=== PATIENT | female | born 1940 | race Caucasian/White ===

== ENCOUNTER 2018-06-01 14:38 | Outpatient (CLI) | payer MEDICARE, OTHER ==
--- NOTE | 2018-06-01 17:32 | MRI ---
MRI LUMBAR SPINE NONCONTRAST: 06/01/18 HISTORY: Low back pain with left leg radiculopathy. FINDINGS: Conus medullaris has a normal appearance. There is desiccation of all the intervertebral discs and pr ominent discogenic end plate changes within the bone marrow. S-shaped rotatory scoliotic curvature. T12-L1: Osteophytosis. Central canal and neural foramina are patent. L1-2: Disc space narrowing with minimal degenerative retrolisthesis. Posterior disc bulge. Circumfere ntial degenerative changes with mild stenosis of the central canal. There is moderate to severe bilat eral foraminal stenoses. L2-3: Disc space narrowing with minimal degenerative retrolisthesis. Posterior disc bulge and circumf erential degenerative changes. Mild to moderate stenosis of the central canal. Moderate stenosis of e ach neural foramen. L3-4: Minimal disc bulge. Degenerative changes of the facets. The thecal sac is patent. Moderate bila teral foraminal stenosis. L4-5: Grade II spondylolisthesis at this level. Near complete loss of disc space height. Posterior di sc bulge. Prominent hypertrophy of the facets and posterior ligaments. These findings result in very severe stenosis of the central canal and left neural foramen and moderate to severe stenosis of the r ight neural foramen. L5-S1: Mild osteophytosis. The central canal and neural foramina are patent. IMPRESSION: Prominent multilevel degenerative changes throughout the lumbar spine as detailed above. Disease is m ost severe at the L4-5 level where there is grade II spondylolisthesis and very severe stenosis of th e central canal and left neural foramen. Please consider surgical evaluation. POS: [facility]
== END 2018-06-01 14:39 | disposition home or self-care (01) ==
LOC: BICMRI 14:38
PROVIDERS: ATTEND Family Medicine
DX: M47.26 Other spondylosis with radiculopathy, lumbar region (principal); M43.16 Spondylolisthesis, lumbar region; M48.061 Spinal stenosis, lumbar region without neurogenic claudication
CPT/HCPCS: 72148

== ENCOUNTER 2018-08-15 15:09 | Outpatient (CLI) | payer MEDICARE, OTHER ==
--- NOTE | 2018-08-15 15:58 | RAD ---
LEFT ANKLE THREE VIEWS: 08/15/18 HISTORY: Ankle pain and edema. No known injury. There is soft tissue swelling mainly around the medial malleolus. There is no signs of any fracture. No evidence of ankle joint effusion. There is a prominent plantar fascia spur and some ossification d eveloping along the plantar fascia. Incidental note is made of some subtle lucency along the medial side of the talar dome compatible wit h a small osteochondral lesion. IMPRESSION: Approximately 5 to 6 mm osteochondral lesion in the medial side of the talar dome. This could be the underlying etiology for patient's pain. POS: [facility]
== END 2018-08-15 15:10 | disposition home or self-care (01) ==
LOC: BICRAD 15:09
PROVIDERS: ATTEND Family Medicine
DX: R60.9 Edema, unspecified (principal); M92.62 Juvenile osteochondrosis of tarsus, left ankle

== ENCOUNTER 2019-02-13 09:47 | Outpatient (CLI) | payer MEDICARE, OTHER ==
[2019-02-13 12:58] LABS: Hemoglobin 14.4 g/dL (12.0-16.0); Mean Corpuscular HGB CONC 32.9 g/dL (32.0-36.0); Mean Corpuscular Hemoglobin 33.4 pg (27.0-31.0); Platelet Count 286 thou/uL (130-400); Red Blood Cell (RBC) Count 4.31 mill/uL (4.20-5.40)
[2019-02-13 13:21] LABS: Anion Gap 14 mmol/L (10-20); BUN (Urea Nitrogen) 14 mg/dL (9.8-20.1); Calc. Creatinine Clearance 0 mL/min (70-130); Calcium 10.3 mg/dL (7.8-10.44); Carbon Dioxide 27 mmol/L (23-31); Chloride 100 mmol/L (98-107); Estimated GFR-MDRD 78; Glucose 103 mg/dL (83-110); Potassium 3.9 mmol/L (3.5-5.1); Sodium 137 mmol/L (136-145)
== END 2019-02-13 09:48 | disposition home or self-care (01) ==
LOC: LABBT 09:47
PROVIDERS: ATTEND Neurological Surgery
DX: Z01.818 Encounter for other preprocedural examination (principal); M43.16 Spondylolisthesis, lumbar region
CPT/HCPCS: 80048; 85027; 87081; 93005; 93010

== ENCOUNTER 2019-02-13 10:00 | Inpatient (IN) | payer MEDICARE, OTHER ==
[2019-02-13 10:19] VITALS: BMI 31.6
[2019-02-19] MEDS ORDERED: Sodium Chloride 0.9% 10 ML ONE (07:14)
[2019-02-19] MEDS ORDERED: Lidocaine 2% Jelly 5 ML TUBE ONE (07:41)
[2019-02-19] MEDS ORDERED: Fentanyl 100 MCG/2 ML VIAL ONE ×3 (07:41→10:35)
[2019-02-19] MEDS ORDERED: Ondansetron HCl/PF 4 MG/2 ML Vial IVP PRN (09:50)
[2019-02-19] MEDS ORDERED: Promethazine HCl 25 MG/ML VIAL SLOW IVP PRN (09:50)
[2019-02-19] MEDS ORDERED: Promethazine HCl 25 MG/ML VIAL IM PRN ×2 (09:50→10:10)
[2019-02-19] MEDS ORDERED: diphenhydrAMINE 50 MG/ML VIAL IVP PRN (10:10)
[2019-02-19] MEDS ORDERED: Milk Of Magnesia 30 ML UDCUP PO PRN (10:10)
[2019-02-19] MEDS ORDERED: Promethazine 25 MG TAB PO PRN (10:10)
[2019-02-19] MEDS ORDERED: HYDROcodone/Acetaminophen 10/325 mg Tablet PO PRN ×2 (10:10)
[2019-02-19] MEDS ORDERED: Promethazine HCl 12.5 MG SUPP PR PRN (10:10)
[2019-02-19] MEDS ORDERED: Mag-Al 1200 mg/1200 mg/30 ML UDCUP PO PRN (10:10)
[2019-02-19] MEDS ORDERED: traMADol HCl 50 MG TAB PO PRN ×2 (10:10)
[2019-02-19] MEDS ORDERED: diphenhydrAMINE 25 MG CAP PO PRN (10:10)
[2019-02-19] MEDS: Sodium Chloride 0.9% 1,000 ML IV SCH (12:00)
--- NOTE | 2019-02-19 12:52 | OP ---
DATE OF PROCEDURE: 02/19/2019 CUSTOMER EXPERIENCE SPECIALIST: David Chua PA-C PROCEDURES PERFORMED: Posterior lumbar laminectomy L4-L5, left L4-L5 facetectomy and foraminotomy. Interbody arthrodesis, posterolateral arthrodesis, pedicle screw instrumentation L4-L5, demineralized bone matrix, and local morselized autograft. DESCRIPTION OF PROCEDURE: The patient was brought to the operating room and intubated. She was rolled in a prone position on gel-filled chest rolls. An incision was made exposing L4 and L5 bilaterally and the level was confirmed by x-ray. We performed complete L5 and complete L4 laminectomies, completing decompressing L4-L5. We next turned our attention to the left L4-L5 region. We performed complete facetectomy and completely decompressed the left L4 nerve root. Beneath this was a bulging disk herniation, which was incised and debrided and the disk space was completely debrided disk material for the purpose of arthrodesis. However, the disk space was too collapsed for placement of interbody device. We next placed pedicle screws at L4 and L5 bilaterally using lateral fluoroscopic guidance. Distraction was placed across left L4-L5 neuroforamen. The nuts were all final tightened. The wound was then extensively irrigated. MAC hemostasis was secured. A combination of demineralized bone matrix and local morselized autograft was laid over the lamina and posterolateral surfaces for the purpose of arthrodesis. Vancomycin powder was applied and the wound was then closed in anatomic layers. Job ID: [id number]
[2019-02-19] MEDS ORDERED: CEFAZOLIN 2 GM in Premix Bag 1 BAG IVPB SCH (14:00)
[2019-02-19] MEDS ORDERED: PROPOFOL 200 MG/20 ML VIAL ONE (14:36)
[2019-02-19] MEDS ORDERED: Rocuronium Bromide 10 MG/ML (10ML VIAL) ONE (14:36)
[2019-02-19] MEDS ORDERED: Lidocaine 1% PF 5 ML VIAL ONE (14:36)
[2019-02-19] MEDS ORDERED: Ketorolac Tromethamine 30 MG/ML VIAL ONE (14:36)
[2019-02-19] MEDS ORDERED: Ondansetron PF 4 MG/2 ML Vial ONE (14:36)
[2019-02-19] MEDS ORDERED: ePHEDrine 50 MG/ML VIAL ONE (14:36)
[2019-02-19] MEDS ORDERED: Glycopyrrolate 0.2 MG/ML 5 ML SYRINGE ONE (14:36)
[2019-02-19] MEDS ORDERED: Dexamethasone 20 MG/5 ML VIAL ONE (14:36)
[2019-02-19] MEDS: CEFAZOLIN 2 GM in Premix Bag 1 BAG IVPB SCH (18:14)
[2019-02-19] MEDS: tiZANidine HCl 4 MG TAB PO PRN (20:55)
[2019-02-19] MEDS ORDERED: Ezetimibe 10 MG TAB PO SCH (21:00)
[2019-02-19] MEDS ORDERED: Latanoprost 0.005% Ophth Soln 2.5 ml Bottle EA EYE SCH (21:00)
[2019-02-19] MEDS ORDERED: Rosuvastatin 20 MG TAB PO SCH (21:00)
--- NOTE | 2019-02-19 21:29 | CON ---
DATE OF CONSULTATION: CONSULTING PHYSICIAN: Mark Thornton MD REASON FOR CONSULTATION: Postoperative medical management. HISTORY OF PRESENT ILLNESS: This patient is a very pleasant 79-year-old female, with a history of chronic lumbar radiculopathy with stenosis at L4-L5. She has been through a number of more conservative measures including injections without significant improvement and ultimately presented for elective lumbar decompression. The patient underwent surgery this morning and had a posterior lumbar laminectomy at L4-L5 with a left L4-L5 facetectomy and foraminotomy. She also had interbody arthrodesis, posterolateral arthrodesis, pedicle screw instrumentation at L4-L5 with some placement of bone matrix and morselized autograft. She is doing very well postoperatively. She reports that her pain is far better now than it was prior to her surgery. She says she is a bit embarrassed by that and feels like she waited for too long to have the surgery. She has a bit of a sore throat, but otherwise has been able to eat some ice cream this evening. REVIEW OF SYSTEMS: All systems reviewed. All pertinent positives and negatives are noted in history of present illness. PAST MEDICAL HISTORY: Notable for nonocclusive coronary artery disease followed by Dr. Cohen. The patient had medical clearance prior to this procedure. She has a history of stent placement in 2006. She has obstructive sleep apnea, osteoporosis, hypertension, hyperlipidemia. PAST SURGICAL HISTORY: Carpal tunnel release on the right, arthroplasty of left hand, arthroplasty of right hand. FAMILY HISTORY: The patient's father had bladder cancer and heart disease. Mother at 93. She has a sister with Parkinson disease and a brother with cancer and heart disease. SOCIAL HISTORY: The patient is a nonsmoker. She is a nondrug user. She does drink a glass of wine daily. ALLERGIES: NONE. CURRENT MEDICATIONS: 1. Valacyclovir 500 mg p.o. q.p.m. 2. Slow-Mag 64 mg daily. 3. Vitamin D3, 2000 units b.i.d. 4. Calcium with vitamin D one p.o. daily. 5. CoQ10 100 mg daily. 6. Hydrochlorothiazide 12.5 mg p.o. daily. 7. Aspirin 81 mg daily. 8. Tylenol 1000 mg b.i.d. 9. Lumigan one drop each eye at bedtime. 10. Rosuvastatin 20 mg one p.o. daily. 11. Ibandronate 150 mg monthly. 12. Lisinopril 10 mg p.o. daily. 13. Metoprolol-XL 50 mg at bedtime. 14. Zetia 10 mg one p.o. at bedtime. PHYSICAL EXAMINATION: VITAL SIGNS: Temperature is 98, pulse 71, respirations 18, O2 saturation 94% on room air, BP is 125/70. GENERAL APPEARANCE: Age-appropriate female, awake, alert, oriented, pleasant, and cooperative. HEENT: KIP. No OP lesions. NECK: Supple and symmetric. No lymphadenopathy, JVD, or carotid bruits. HEART: Regular rate and rhythm without murmurs, gallops, or rubs. LUNGS: Clear to auscultation bilaterally. ABDOMEN: Soft, nontender, and nondistended. Positive bowel sounds. No masses. No organomegaly. EXTREMITIES: No cyanosis, clubbing, or edema. PSYCH: Normal affect and behavior. NEURO: The patient has a normal sensation in lower extremities. Cranial nerves are intact. She has normal cognition. IMPRESSION AND PLAN: 1. Postop lumbar L4-L5 decompression surgery with instrumentation. She is doing well. Continue postop care per Neurosurgery. 2. History of coronary artery disease. She is back on her usual home medication regimen including her beta kwaku. We will need to resume aspirin surgery postoperatively. 3. Hypertension. Continue with the lisinopril at her usual home regimen. 4. Hyperlipidemia. Continue with rosuvastatin and Zetia 10. I will be happy to follow the patient while she is admitted to the hospital to address any medical needs that may arise. Thank you for the opportunity to participate in this patient's care. Job ID: [id number] [facility]
[2019-02-20] MEDS: Sodium Chloride 0.9% 1,000 ML IV SCH (00:03)
[2019-02-20] MEDS: CEFAZOLIN 2 GM in Premix Bag 1 BAG IVPB SCH ×2 (01:42→09:06)
[2019-02-20] MEDS: tiZANidine HCl 4 MG TAB PO PRN ×2 (04:15→09:00)
[2019-02-20] MEDS ORDERED: Lisinopril 10 MG TAB PO SCH (09:00)
[2019-02-20] MEDS ORDERED: Hydrochlorothiazide 25 MG TAB PO SCH (09:00)
--- NOTE | 2019-02-20 12:26 | DIS ---
DATE OF ADMISSION: 02/19/2019 DATE OF DISCHARGE: 02/20/2019 The patient is an 79-year-old female, who was recently evaluated in our office for progressive back pain and neurogenic claudication. She was found to have L4-L5 spondylolisthesis and stenosis. She underwent L4-L5 decompression and fusion on 02/19/2019. AYUSH drain was placed intraoperatively. Following the surgery, she was transitioned to the Med/Surg floor, where her pain has been well-controlled with p.o. medications, she is tolerating a regular diet, and she is voiding appropriately. She has been up ambulating easily with minimal assistance. Her AYUSH drain output has trended down and had 70 mL overnight. We will plan to remove today on postoperative day #1. She is doing quite well and we will plan to dismiss to home. I have discussed home care precautions and we will follow up with the patient in 2 weeks. I have provided her with scripts for Boling, Zanaflex, and Keflex. Job ID: [id number]
[2019-02-20 12:35] VITALS: BP 101/56; TEMP 98.8
== END 2019-02-20 14:01 | disposition home or self-care (01) | DRG 455 ==
LOC: SJJU 02-19 06:48 → SURG A 02-19 11:17
PROVIDERS: ADMIT Neurological Surgery; ATTEND Neurological Surgery
PROC: 0SG00AJ Fusion of Lumbar Vertebral Joint with Interbody Fusion Device, Posterior Approach, Anterior Column, Open Approach (ICD-10-PCS; principal; 2019-02-19)
PROC: 0SG0071 Fusion of Lumbar Vertebral Joint with Autologous Tissue Substitute, Posterior Approach, Posterior Column, Open Approach (ICD-10-PCS; 2019-02-19)
DX: M48.062 Spinal stenosis, lumbar region with neurogenic claudication (principal); M43.16 Spondylolisthesis, lumbar region; M51.16 Intervertebral disc disorders with radiculopathy, lumbar region; I25.10 Atherosclerotic heart disease of native coronary artery without angina pectoris; G47.33 Obstructive sleep apnea (adult) (pediatric); I10 Essential (primary) hypertension; E78.5 Hyperlipidemia, unspecified; E66.9 Obesity, unspecified; M81.0 Age-related osteoporosis without current pathological fracture; Z98.890 Other specified postprocedural states; Z79.82 Long term (current) use of aspirin; Z79.899 Other long term (current) drug therapy; Z95.5 Presence of coronary angioplasty implant and graft; Z68.31 Body mass index [BMI] 31.0-31.9, adult
CPT/HCPCS: 76000; C1713; C1768; J0690; J3010; J3370; J3490

== ENCOUNTER 2019-03-07 09:05 | Outpatient (CLI) | payer MEDICARE, OTHER ==
--- NOTE | 2019-03-07 09:29 | RAD ---
X-RAY LUMBAR SPINE 2 OR 3 VIEWS DATE: 03/07/2019. TIME: 12:00 a.m. CLINICAL INDICATION: Spondylolisthesis. COMPARISON: None. FINDINGS: Fracture:No fracture. Arthropathy:Moderate multilevel degenerative change of the lumbar spine is present. Redemonstration o f grade II spondylolisthesis, L4-5. Interval performance of posterior fusion of L4-5 with bilateral pedicle screws and bilateral vertical interconnecting rods. There is cephalad angulation of L4 screw on the lateral view with linear lucency at its base, which may relate to an associated hardware fracture. Incidental findings:Atherosclerosis. IMPRESSION: 1. Moderate multilevel degenerative change of the postoperative lumbar spine. 2. There is persistent, grade II spondylolisthesis, L4-5. Interval placement of hardware at L4-5 with cephalad angulation of L4 pedicle screws. On the lateral projection, there is lucency at the base of L4 pedicle screw which raises concern for associated hardware fracture. Transcribed Date/Time: 03/07/2019 9:56 AM
== END 2019-03-07 09:06 | disposition home or self-care (01) ==
LOC: TBSIIMAG 09:05
PROVIDERS: ATTEND Neurological Surgery
DX: M43.16 Spondylolisthesis, lumbar region (principal); M47.816 Spondylosis without myelopathy or radiculopathy, lumbar region; Z98.890 Other specified postprocedural states
CPT/HCPCS: 72100

== ENCOUNTER 2019-04-17 11:00 | Outpatient (CLI) | payer MEDICARE, OTHER ==
--- NOTE | 2019-04-17 13:01 | RAD ---
LUMBAR SPINE TWO VIEWS: HISTORY: Lumbar spondylolisthesis. COMPARISON: 03/07/2019 FINDINGS: AP and lateral views of the lumbar spine demonstrate levoscoliosis. Postop laminectomy and pedicle sc rew placement change is noted at L5-S1 with some stable anterolisthesis. Spondylosis with disk space narrowing at L2-L3 and at L1-L2, stable. IMPRESSION: Stable levoscoliosis and spondylolisthesis of L4 and L5 and generalized spondylosis and postoperative change. POS: [facility]
== END 2019-04-17 11:01 | disposition home or self-care (01) ==
LOC: BICRAD 11:00
PROVIDERS: ATTEND Neurological Surgery
DX: M43.16 Spondylolisthesis, lumbar region (principal); M41.86 Other forms of scoliosis, lumbar region; M47.816 Spondylosis without myelopathy or radiculopathy, lumbar region; Z98.890 Other specified postprocedural states
CPT/HCPCS: 72100

== ENCOUNTER 2019-06-15 14:41 | Outpatient (CLI) | payer MEDICARE, OTHER ==
--- NOTE | 2019-06-15 15:55 | ULT ---
Ultrasound of the thyroid gland: 06/15/2019 COMPARISON:None available HISTORY:Thyroid nodule TECHNIQUE: Multiplanar grayscale sonographic imaging of the thyroid gland. FINDINGS: The thyroid isthmus measures3 mm in AP dimension. The right lobe of the thyroid gland measures1.5 x 1.4 x 3.2 cm. The left lobe of the thyroid gland measures 3.8 x 1.8 x 1.7 cm. There is a small heterogeneously hypo echoic solid and cystic nodule within the right lobe of the thyroid gland measuring 7 x 5 x 6 mm. There is an additional heterogeneously hypoechoic solid nodule within the right lobe measuring 1.0 x 0.6 x 0.7 cm. There is a third primarily cystic nodule within the right lobe measuring 9 x 8 x 6 mm. In the region of the isthmus there is a 6 x 3 x 5 mm cystic nodule. There is a hypoechoic solid nodul e in the left lobe of the thyroid gland measuring 1.0 x 0.9 x 0.5 cm. There is a solid and cystic nodule within the left lobe measuring 1.3 x 1.1 x 0.9 cm. 2 adjacent heterogeneously hypoechoic ill-d efined nodules are noted within the left lobe on image 38 of 42 measuring up to 1.0 and 0.8 cm respectively. IMPRESSION:. There are numerous nodules within the thyroid gland as detailed above. Based on the TI-RADS classific ation, these nodules are classified as moderately suspicious findings. As there is no discrete/dominant nodule measuring greater than 1.5 cm, no fine-needle aspiration is suggested at thi s time. However, a follow-up thyroid ultrasound is suggested in one year to document stability.
== END 2019-06-15 14:42 | disposition home or self-care (01) ==
LOC: BICULT 14:41
PROVIDERS: ATTEND Internal Medicine Cardiovascular Disease
DX: E04.2 Nontoxic multinodular goiter (principal)
CPT/HCPCS: 76536

== ENCOUNTER 2019-09-05 09:13 | Outpatient (CLI) | payer MEDICARE, OTHER ==
--- NOTE | 2019-09-05 11:23 | BD ---
BONE DENSITOMETRY USING DEXA: Date: 09/05/2019 HISTORY: Postmenopausal screening for osteoporosis. FINDINGS: Bilateral Hips BMD (g/cm2) Right Hip Neck: 0.740 T-Score: -1.0 Z-Score: 1.3 Total: 0.871 T-Score: -0.7 Z-Score: 1.5 Left Hip Neck: 0.686 T-Score: -1.5 Z-Score: 0.9 Total: 0.785 T-Score: -1.3 Z-Score: 0.8 IMPRESSION: Osteopenia. POS: [facility]
== END 2019-09-05 09:14 | disposition home or self-care (01) ==
LOC: BICMAMMO 09:13
PROVIDERS: ATTEND Internal Medicine Rheumatology
DX: M81.0 Age-related osteoporosis without current pathological fracture (principal); M85.88 Other specified disorders of bone density and structure, other site
CPT/HCPCS: 77080

== ENCOUNTER 2021-06-18 13:20 | Outpatient (CLI) | payer MEDICARE, OTHER | END 2021-06-18 13:21 | disposition home or self-care (01) | LOC: MRI 13:20 | PROVIDERS: ATTEND Orthopaedic Surgery | DX: M19.012 Primary osteoarthritis, left shoulder (principal); M75.92 Shoulder lesion, unspecified, left shoulder ==

== ENCOUNTER 2021-06-29 11:32 | Outpatient (CLI) | payer MEDICARE, OTHER ==
[2021-06-29 13:06] LABS: #Eosinphils 0.1 10x3/uL (0.0-0.5); #Monocytes 0.6 10x3/uL (0.0-1.1); #Neutrophils 5.1 10x3/uL (1.5-8.4); %Basophils 0.5 % (0.0-2.0); %Eosinophils 0.7 % (0.0-6.0); %Monocytes 7.3 % (0.0-10.0); %Neutrophils 66.2 % (40.0-75.0); Hemoglobin 14.1 g/dL (12.0-15.5); Mean Corpuscular HGB CONC 33.2 g/dL (32.0-36.0); Mean Corpuscular Hemoglobin 32.6 pg (27.0-33.0); Mean Corpuscular Volume 98.4 fl (81.6-98.3); Mean Platelet Volume 9.1 fl (7.4-10.4); Platelet Count 289 10x3/uL (150-450); RBC Distribution Width 11.7 % (11.5-14.5); Red Blood Cell (RBC) Count 4.32 10x6/uL (3.90-5.03); White Blood Cell (WBC) Count 7.7 10x3/uL (3.5-10.5)
[2021-06-29 13:31] LABS: Anion Gap 16 mmol/L (10-20); BUN (Urea Nitrogen) 13 mg/dL (9.8-20.1); Calc. Creatinine Clearance 0 mL/min (70-130); Calcium 9.6 mg/dL (7.8-10.44); Carbon Dioxide 25 mmol/L (23-31); Chloride 98 mmol/L (98-107); Glucose 110 mg/dL (83-110); Potassium 4.4 mmol/L (3.5-5.1); Sodium 135 mmol/L (136-145)
[2021-06-29 23:37] LABS: SARS-CoV-2 PCR by NAA Not Detected (NotDetected)
== END 2021-06-29 11:33 | disposition home or self-care (01) ==
LOC: LABBT 11:32
PROVIDERS: ATTEND Orthopaedic Surgery
DX: Z01.812 Encounter for preprocedural laboratory examination (principal); M19.012 Primary osteoarthritis, left shoulder; Z20.822 Contact with and (suspected) exposure to COVID-19
CPT/HCPCS: 80048; 85025; U0003; U0005

== ENCOUNTER 2021-07-02 05:50 | Day surgery (SDC) | payer MEDICARE, OTHER ==
[2021-06-25 15:53] VITALS: BMI 30.7
[2021-07-02] MEDS ORDERED: Fentanyl 250 MCG/5 ML VIAL ONE (07:32)
[2021-07-02] MEDS ORDERED: Lidocaine 2% Jelly 5 ML TUBE ONE (07:33)
[2021-07-02] MEDS ORDERED: Phenylephrine 10 MG/ML VIAL ONE (07:45)
[2021-07-02] MEDS ORDERED: Vancomycin 1.5 GRAM/300 ML BAG 1.5 GM in Premix Bag 1 BAG IVPB SCH ×2 (08:00→17:00)
[2021-07-02] MEDS ORDERED: ceFAZolin 2 GM/Dextrose 50 ML IVPB ONE ×2 (08:13→15:34)
[2021-07-02] MEDS ORDERED: Tranexamic Acid 1,000 MG/10 ML VIAL ONE ×2 (08:14→11:57)
[2021-07-02] MEDS ORDERED: Sodium Chloride 0.9% 100 ML ONE (08:14)
[2021-07-02] MEDS ORDERED: Fentanyl 100 MCG/2 ML VIAL SLOW IVP PRN (08:56)
[2021-07-02] MEDS ORDERED: Ondansetron PF 4 MG/2 ML Vial IVP PRN (09:00)
[2021-07-02] MEDS ORDERED: Zolpidem Tartrate 5 MG TAB PO PRN (09:00)
[2021-07-02] MEDS ORDERED: Promethazine HCl 25 MG/ML VIAL IM PRN (09:00)
[2021-07-02] MEDS ORDERED: Ropivacaine 0.2% 550 ML 550 ML NERVE BLCK SCH (09:00)
[2021-07-02] MEDS ORDERED: traMADol HCl 50 MG TAB PO PRN ×2 (09:00)
[2021-07-02] MEDS ORDERED: HYDROcodone/Acetaminophen 10/325 mg Tablet PO PRN ×2 (09:00)
[2021-07-02] MEDS ORDERED: PHENYLEPHRINE-NS 100 MCG/ML 10 ML SYRINGE ONE (09:23)
[2021-07-02] MEDS ORDERED: Bupivacaine HCl 0.5%/Epinephrine 1:200,000/PF 30 ml Vial ONE (09:23)
[2021-07-02] MEDS ORDERED: Ondansetron PF 4 MG/2 ML Vial ONE (09:23)
[2021-07-02] MEDS ORDERED: ePHEDrine 50 MG/ML VIAL ONE (09:23)
[2021-07-02] MEDS ORDERED: PROPOFOL 200 MG/20 ML VIAL ONE (09:23)
[2021-07-02] MEDS ORDERED: Dexamethasone 20 MG/5 ML VIAL ONE (09:23)
[2021-07-02] MEDS ORDERED: Rocuronium Bromide 10 MG/ML (10ML VIAL) ONE (09:23)
[2021-07-02] MEDS ORDERED: Glycopyrrolate 0.2 MG/ML 5 ML SYRINGE ONE (09:23)
[2021-07-02] MEDS ORDERED: Ketorolac Tromethamine 30 MG/ML VIAL IVP SCH (12:00)
[2021-07-02] MEDS ORDERED: Dextrose 5 %-0.45 % NaCl 1,000 ML IV SCH (16:45)
[2021-07-02] MEDS ORDERED: ceFAZolin 2 GM/Dextrose 50 ML 2 GM in Premix Bag 1 BAG IVPB SCH (23:00)
== END 2021-07-02 20:40 | disposition home or self-care (01) ==
LOC: SDC 05:50
PROVIDERS: ATTEND Orthopaedic Surgery
PROC: 0RRK0JZ Replacement of Left Shoulder Joint with Synthetic Substitute, Open Approach (ICD-10-PCS; principal; 2021-07-02)
PROC: 3E0T3BZ Introduction of Anesthetic Agent into Peripheral Nerves and Plexi, Percutaneous Approach (ICD-10-PCS; 2021-07-02)
DX: M19.012 Primary osteoarthritis, left shoulder (principal); M75.21 Bicipital tendinitis, right shoulder; E78.5 Hyperlipidemia, unspecified; I10 Essential (primary) hypertension; I25.10 Atherosclerotic heart disease of native coronary artery without angina pectoris; M81.0 Age-related osteoporosis without current pathological fracture; B00.9 Herpesviral infection, unspecified; Z79.82 Long term (current) use of aspirin; Z79.899 Other long term (current) drug therapy; Z95.5 Presence of coronary angioplasty implant and graft
CPT/HCPCS: 23472; 64416; 93005; 97139; A4306; 93010; C1713; C1776; J0690; J1100; J2370; J2405; J2704; J2795; J3010; J3370; J3490

== ENCOUNTER 2023-04-01 12:11 | Outpatient (CLI) | payer MEDICARE, OTHER | END 2023-04-01 12:12 | disposition home or self-care (01) | LOC: RAD 12:11 | PROVIDERS: ATTEND Physician Assistant | DX: M48.062 Spinal stenosis, lumbar region with neurogenic claudication (principal); M47.816 Spondylosis without myelopathy or radiculopathy, lumbar region; Z98.1 Arthrodesis status | CPT/HCPCS: 72110 ==

== ENCOUNTER 2023-04-07 10:56 | Outpatient (CLI) | payer MEDICARE, OTHER | END 2023-04-07 10:57 | disposition home or self-care (01) | LOC: MRI 10:56 | PROVIDERS: ATTEND Physician Assistant | DX: M48.062 Spinal stenosis, lumbar region with neurogenic claudication (principal); M47.816 Spondylosis without myelopathy or radiculopathy, lumbar region; M47.817 Spondylosis without myelopathy or radiculopathy, lumbosacral region; M47.815 Spondylosis without myelopathy or radiculopathy, thoracolumbar region | CPT/HCPCS: 72148 ==